=== PATIENT | female | born 1975 | race Caucasian/White ===

== ENCOUNTER 2016-10-21 21:02 | Emergency (ER) | payer BC ==
--- NOTE | 2016-10-21 21:10 | EDPRACDOC ---
[id number] Source: Patient Mode of Arrival: Ambulance Home Medications: Home Medications Pantoprazole Sodium 40 mg PO DAILY 06/10/16 Fluticasone/Vilanterol [Breo Ellipta 100-25 Mcg INH] 1 puff INH DAILY 06/11/16 Albuterol Sulfate [Proair Respiclick] 90 mcg INH DIR 10/21/16 Azithromycin 250 mg PO DAILY #4 tablet 10/21/16 Cefdinir 300 mg PO BID #14 capsule 10/21/16 Ondansetron HCl [Zofran] 4 mg PO Q6H PRN #12 tab 10/21/16 Oxycodone HCl [Roxicodone] 5 mg PO Q4 PRN #10 tablet 10/21/16 Allergies/Adverse Reactions: Allergies Allergy/AdvReac Type Severity Reaction Status Date / Time promethazine HCl Allergy See Verified 06/11/16 12:22 [From Phenergan] Comments - History of Present Illness HPI: LAST NIGHT DEVELOPED N/V ABOUT 1900. SAW PCP TODAY, THEN 1500 LEFT CHEST PAIN CONSTANT, STABBING. SEVERE. PAIN WORSE WITH INSPIRATION. NO SOB. DEVELOPED NECK AND GENERALIZED HEADACHE LAST NIGHT. LEFT CHEST PAIN /. ED Past Medical History - History Reviewed Yes Nurses notes reviewed and agree except as marked - Patient Medical History Respiratory History: Reports: Asthma (R/T TO ALLERGY SYMPTOMS) Psychological History: Denies: Depression Systemic History: Denies: Cancer Surgical History: Reports: Cholecystectomy (04/30/16 [facility]) - Family Medical History Reports: Hypertension, Diabetes. Denies: Cancer, Stroke, Cardiac Disorders - Social Medical History Smoking Status: Never smoker EDM Review of Systems - Review of Systems ROS Negative Except as Marked: Yes All systems reviewed and were negative except as marked Constitutional: Weakness. negative: Fever Eyes: No Symptoms Reported Mouth: No Symptoms Reported Respiratory: No Symptoms Reported Cardiovascular: Chest Pain Gastrointestinal: Nausea. negative: Pain Genitourinary: No Symptoms Reported Neurological: Headache - Physical Exam Constitutional: Alert (Awake), No apparent distress Oriented to: Time, Person, Place Last recorded Vital Signs: Oxygen Pulse Oxygen Saturation O2 Device Oxygen Flow Rate Fraction of Inspired Oxygen ( FIO2) - HEENT Head: Normal ( normocephalic) Eye Exam: Normal (PERRL, EOMI, Sclera white) Oropharynx: Normal (Pharynx:Moist without exudate,Gums-no swelling) Nose: No Symptoms Reported (septum midline) Neck: Tender (PARASPINAL). negative: Lymphadenopathy, Meningeal Signs - Respiratory/Cardiovascular Respiratory: Normal - CTA (BBS clear to auscultation without adventitious sounds ) Cardiovascular: Normal (RRR without murmur, gallop or rub) - GI Auscultation: Normal (NABS) Palpation: Normal (Soft,No rebound or guarding, non distended) Tenderness: Non tender Samuel's Sign: Negative - Musculoskeletal Back: Normal (Non-Tender) Extremities: Normal (Normal tone, Pulses 2+ No cyanosis or edema, FROM) - Integumentary Skin: Normal, Warm, Dry Lymphatics: Normal (no adenopathy) - Neurologic Memory Impaired: Normal Motor Function: Normal (Normal tone, Pulses 2+ No cyanosis or edema, FROM) Cranial Nerve: Normal (CN II-X11 intact sensation, strength 5/5) Cerebellar: Normal Mood Description: Normal Perception: Normal - Action ASA given in the ED: Yes - Results 10/21/16 21:35 10/21/16 21:35 - EKG EKG #1 EKG Time: 21:21 -: Yes EKG interpreted by me Rate: bpm: 95 [place]: RAD Rhythm: NSR Block: None Hypertrophy: None ST: Nonsp Comments: ABNORMAL EKG Comparison: 05/08/16 (NO CHANGE) - Departure Yes I personally saw and evaluated the patient. Disposition: Home Condition: Stable Final Diagnosis: Pneumonia Qualifiers: Pneumonia type: due to unspecified organism Laterality: left Lung location: upper lobe of lung Qualified Code(s): J18.1 - Lobar pneumonia, unspecified organism Instructions: Chest Pain (ED) Referrals: None,No Provider [Primary Care Provider] - One Week Prescriptions: New Azithromycin 250 mg PO DAILY #4 tablet Cefdinir 300 mg PO BID #14 capsule Ondansetron HCl [Zofran] 4 mg PO Q6H PRN #12 tab PRN Reason: Nausea/Vomiting Oxycodone HCl [Roxicodone] 5 mg PO Q4 PRN #10 tablet PRN Reason: Pain No Action Pantoprazole Sodium 40 mg PO DAILY Fluticasone/Vilanterol [Breo Ellipta 100-25 Mcg INH] 1 puff INH DAILY Albuterol Sulfate [Proair Respiclick] 90 mcg INH DIR Forms: Excuse Note
[2016-10-21 21:17] VITALS: BMI 18.8
[2016-10-21] MEDS ORDERED: NS 1,000 ML IV ONE ×2 (21:18→23:04)
--- NOTE | 2016-10-21 21:37 | DIRPT ---
CLINICAL DATA: Left-sided chest pain. EXAM: PORTABLE CHEST 1 VIEW COMPARISON: CT scan of September 03, 2016. Chest radiograph of May 08, 2016. FINDINGS: The heart size and mediastinal contours are within normal limits. No pneumothorax or pleural effusion is noted. Right lung is clear. Left perihilar opacity is now seen most consistent with atelectasis or pneumonia. The visualized skeletal structures are unremarkable. IMPRESSION: Interval development of left perihilar opacity concerning for atelectasis or pneumonia. Short-term follow-up radiographs are recommended to ensure resolution and rule out underlying neoplasm. Electronically Signed By: Sunil Fregoso Jr, M.D. On: 10/21/2016 21:34
[2016-10-21] MEDS ORDERED: ASPIRIN (CHEWABLE) 81 MG TAB PO ONE (21:40)
[2016-10-21] MEDS ORDERED: CEFTRIAXONE 1 GM in D5W 100 ML IV ONE (21:43)
[2016-10-21] MEDS ORDERED: AZITHROMYCIN 500 MG in D5W 250 ML IV ONE (21:43)
[2016-10-21 21:49] LABS: MPV 8.1 fL (7.4-10.4)
[2016-10-21 21:53] LABS: BLOOD UREA NITROGEN 9 MG/DL (7-17); CALCULATED OSMOLALITY 262 MOs/Kg (270-290); CHLORIDE 101 mEq/L (98-107); GLUCOSE 115 MG/DL (70-99); SODIUM LEVEL 136 mEq/L (137-146); TOTAL PROTEIN 7.1 G/DL (6.3-8.2)
[2016-10-21 21:57] LABS: PT-INR 1.3
[2016-10-21 22:13] LABS: SEG NEUTROPHIL 91 % (45-76)
[2016-10-21 22:14] LABS: LEUKOCYTES/URINE NEG (NEGATIVE); NITRITE/URINE NEG (NEGATIVE); URINE OCCULT BLOOD 1+ (NEG/TRACE); WBC/URINE 0-2 (0-5)
[2016-10-21] MEDS ORDERED: ACETAMINOPHEN 325 MG/TAB TABLET PO ONE (22:25)
[2016-10-21] MEDS ORDERED: KETOROLAC TROMETH 30 MG/ML VIAL IV ONE (22:25)
[2016-10-21] MEDS ORDERED: MORPHINE 4 MG/ML INJECTION IV ONE (23:04)
[2016-10-21] MEDS ORDERED: ONDANSETRON HCL 4 MG/2 ML VIAL IV ONE (23:17)
[2016-10-21] MEDS ORDERED: DIPHENHYDRAMINE 50 MG/ML VIAL IV ONE (23:46)
[2016-10-21] MEDS ORDERED: OXYCODONE HCL 5 MG TABLET PO ONE (23:47)
[2016-10-22 00:04] VITALS: TEMP 98
[2016-10-22 00:53] VITALS: BP 90/50; PULSE 100
== END 2016-10-22 00:51 | disposition home or self-care (01) ==
LOC: ED 21:02
DX: J18.9 Pneumonia, unspecified organism (principal)
CPT/HCPCS: 36415; 71010; 80053; 81001; 81025; 84484; 85007; 85027; 85610; 85730; 93005; 96361; 96365; 96366; 96375; 99284; J0456; J0696; J1200; J1885; J2270; J2405; J3490; J7060; J7070